=== PATIENT | male | born 1990 | race Caucasian/White ===

== ENCOUNTER 2017-05-29 11:34 | Emergency (ER) | payer BC, OTHER ==
[2017-05-29 11:53] VITALS: BP 123/74; PULSE 58; RESP 18; TEMP 98
--- NOTE | 2017-05-29 13:03 | XR ---
EXAMINATION TYPE: XR ribs LT w pa chest x-ray , 5 VIEWS DATE OF EXAM ORDERED: 05/29/2017 HISTORY: Pain. COMPARISON: Previous chest x-ray dated 12/22/2015. FINDINGS: The lungs are clear. Pleural space are clear. The heart is not enlarged. No displaced left -sided rib fractures are seen. IMPRESSION: 1. NORMAL CHEST. 2. I DO NOT SEE EVIDENCE OF A DISPLACED RIB FRACTURE AT THIS TIME.
--- NOTE | 2017-05-29 13:08 | ED ---
General Adult HPI - General Chief complaint: Chest Pain Stated complaint: SOB Time Seen by Provider: 05/29/17 12:38 Source: patient, RN notes reviewed Mode of arrival: ambulatory Limitations: no limitations - History of Present Illness Initial comments: 27-year-old male presents to the emergency Department chief complaint of left- sided rib pain. Ever since patient episode he just has his pain along the left lateral aspect of the ribs worse to breathing worse to touch worse picking up or moving. Patient states that he hasn't had a cough cold Raynaud's with this. Patient's eighth that he hasn't had any centralized chest pain he hasn't had any pressure. Patient was concerned due to his continued discomfort so he thought that he should be evaluated. Patient denies any other symptoms at this time.Patient denies any recent fever, chills, shortness of breath, chest pain, back pain, abdominal pain, nausea vomiting, numbness or tingling, dysuria or hematuria, constipation or diarrhea, headaches or visual changes, or any other current symptoms. - Related Data Previous Rx's Medication Instructions Recorded Cyclobenzaprine [Flexeril] 10 mg PO TID PRN #15 tablet 03/26/16 HYDROcodone/APAP 5-325MG [Gore 5] 1 each PO Q6H PRN #6 tab 03/26/16 Ibuprofen [Motrin] 600 mg PO Q6HR PRN #20 tab 03/26/16 Allergies Allergy/AdvReac Type Severity Reaction Status Date / Time Penicillins AdvReac Unknown Verified 05/29/17 11:52 Childhood Review of Systems ROS Statement: Those systems with pertinent positive or pertinent negative responses have been documented in the HPI. ROS Other: All systems not noted in ROS Statement are negative. Past Medical History Past Medical History: No Reported History Additional Past Medical History / Comment(s): chronic back pain History of Any Multi-Drug Resistant Organisms: None Reported Past Surgical History: Adenoidectomy, Tonsillectomy Additional Past Surgical History / Comment(s): pe tubes Past Psychological History: No Psychological Hx Reported Smoking Status: Current every day smoker Past Alcohol Use History: None Reported Past Drug Use History: Marijuana General Exam Limitations: no limitations General appearance: alert, in no apparent distress Head exam: Present: atraumatic, normocephalic, normal inspection ENT exam: Present: normal exam, mucous membranes moist Neck exam: Present: normal inspection. Absent: tenderness, meningismus, lymphadenopathy Respiratory exam: Present: normal lung sounds bilaterally, chest wall tenderness (left posterior ribs and left lateral). Absent: respiratory distress , wheezes, rales, rhonchi, stridor Cardiovascular Exam: Present: regular rate, normal rhythm, normal heart sounds. Absent: systolic murmur, diastolic murmur, rubs, gallop, clicks Extremities exam: Present: normal inspection, full ROM, normal capillary refill. Absent: tenderness, pedal edema, joint swelling, calf tenderness Back exam: Present: normal inspection Neurological exam: Present: alert, oriented X3 Psychiatric exam: Present: normal affect, normal mood Skin exam: Present: warm, dry, intact, normal color. Absent: rash Course Vital Signs 05/29/17 11:50 Temperature 98.0 F Pulse Rate 58 L Respiratory 18 Rate Blood Pressure 123/74 O2 Sat by Pulse 99 Oximetry Medical Decision Making - Medical Decision Making 27-year-old male presents emergency department with a chief complaint of left- sided rib pain. This time it does appear to be a rib strain. At this time we did discuss Motrin Tylenol icing the area. We did discuss care for this. We discussed return parameters and follow-up and outpatient family's questions. They stated the Marky they are in agreement with the plan. This and the patient will be discharged home. - Radiology Data Radiology results: report reviewed, image reviewed Disposition Clinical Impression: Thoracic myofascial strain, Rib sprain Disposition: HOME SELF-CARE Condition: Stable Instructions: Rib Contusion (ED) Additional Instructions: Please use medication as discussed. Please follow up with family doctor if symptoms have not improved over the next two days. Please return to the emergency room if your symptoms increase or worsen or for any other concerns. Referrals: Mima Medrano MD [STAFF PHYSICIAN] - 1-2 days Time of Disposition: 13:08
== END 2017-05-29 13:19 | disposition home or self-care (01) ==
LOC: EC 11:34
DX: S29.012A Strain of muscle and tendon of back wall of thorax, initial encounter (principal); S23.41XA Sprain of ribs, initial encounter; F17.200 Nicotine dependence, unspecified, uncomplicated; Z88.0 Allergy status to penicillin; X50.9XXA Other and unspecified overexertion or strenuous movements or postures, initial encounter
CPT/HCPCS: 99284

== ENCOUNTER 2017-10-10 18:59 | Emergency (ER) | payer OTHER ==
[2017-10-10 19:17] VITALS: BP 145/75; PULSE 91; RESP 18; TEMP 100.5
[2017-10-10] MEDS ORDERED: IBUPROFEN 600 MG TAB PO STA (19:55)
[2017-10-10] MEDS ORDERED: ACETAMINOPHEN TAB 500 MG TAB PO STA (19:55)
--- NOTE | 2017-10-10 20:01 | ED ---
General Adult HPI - General Chief complaint: Upper Respiratory Infection Stated complaint: Flu Time Seen by Provider: 10/10/17 19:38 Source: patient, RN notes reviewed Mode of arrival: ambulatory Limitations: no limitations - History of Present Illness Initial comments: 27 yo male presents to the ER with cc of fever and body aches. Patient has been sick since this morning. Patient was recently diagnosed with influenza. He states he's had a minimal cough fever bodyaches runny nose. He denies any nausea or vomiting with this. We were concerned due to the continued symptoms without that he should be seen. Patient denies any recent shortness of breath, chest pain, back pain, abdominal pain, nausea vomiting, numbness or tingling, dysuria or hematuria, constipation or diarrhea, headaches or visual changes, or any other current symptoms. - Related Data Previous Rx's Medication Instructions Recorded Oseltamivir [Tamiflu] 75 mg PO Q12HR #10 cap 10/10/17 Allergies Allergy/AdvReac Type Severity Reaction Status Date / Time Penicillins AdvReac Unknown Verified 10/10/17 19:49 Childhood Review of Systems ROS Statement: Those systems with pertinent positive or pertinent negative responses have been documented in the HPI. ROS Other: All systems not noted in ROS Statement are negative. Past Medical History Past Medical History: No Reported History Additional Past Medical History / Comment(s): chronic back pain History of Any Multi-Drug Resistant Organisms: None Reported Past Surgical History: Adenoidectomy, Tonsillectomy Additional Past Surgical History / Comment(s): pe tubes Past Psychological History: No Psychological Hx Reported Smoking Status: Current every day smoker Past Alcohol Use History: None Reported Past Drug Use History: None Reported General Exam - General Exam Comments Initial Comments: General exam: Alert, active, comfortable in no apparent distress Head: Normocephalic Eyes: Normal reaction of pupils, equal size, normal range of extraocular motion Ears: normal external ear canals, pink tympanic membranes with normal cone of light Nose: clear with pink turbinates Throat: no erythema or exudates with normal sized tonsils Neck: no masses, no nuchal rigidity Chest: no chest wall deformity Lungs: equal air entry with no crackles or wheeze CVS: S1 and S2 normal with no audible mumurs, regular rhythm Abdomen: no hepatosplenomegaly, normal bowel sounds, no guarding or rigidity Spine: no scoliosis or deformity Skin: no rashes Neurological: No focal deficits, tone is normal in all 4 extremities Limitations: no limitations Course Vital Signs 10/10/17 19:13 Temperature 100.5 F H Pulse Rate 91 Respiratory 18 Rate Blood Pressure 145/75 Medical Decision Making - Medical Decision Making 27-year-old male presents for fever chills. This patient is positive for influenza. We will start patient on Tamiflu. We did discuss follow-up return parameters all questions. At this time he stated he understood and is in agreement with this plan. All questions have been answered. He will be discharged. - Lab Data Lab Results 10/10/17 Range/Units 19:37 Influenza Type A RNA Detected H (Not Detectd) Influenza Type B (PCR) Not Detected (Not Detectd) Disposition Clinical Impression: Influenza A Disposition: HOME SELF-CARE Condition: Stable Instructions: Influenza (ED) Additional Instructions: Please use medication as discussed. Please follow up with family doctor if symptoms have not improved over the next two days. Please return to the emergency room if your symptoms increase or worsen or for any other concerns. Prescriptions: Oseltamivir [Tamiflu] 75 mg PO Q12HR #10 cap Referrals: Mima Medrano MD [STAFF PHYSICIAN] - 1-2 days Time of Disposition: 20:15
== END 2017-10-10 20:25 | disposition home or self-care (01) ==
LOC: EC 18:59
DX: J10.1 Influenza due to other identified influenza virus with other respiratory manifestations (principal); F17.200 Nicotine dependence, unspecified, uncomplicated; Z88.0 Allergy status to penicillin
CPT/HCPCS: 87502; 99283

== ENCOUNTER → 2018-07-26 | Outpatient (CLI) | payer OTHER ==
--- NOTE | 2018-07-26 08:22 | CT ---
EXAMINATION TYPE: CT abdomen w con DATE OF EXAM: 07/26/2018 COMPARISON: None HISTORY: elevated amylase and lipase CT DLP: 565.20 mGycm Automated exposure control for dose reduction was used. TECHNIQUE: Helical acquisition of images was performed from the lung bases through the top of iliac crest to include entire abdomen. CONTRAST: Performed with Oral Contrast and with IV Contrast, patient injected with 100 mL of Isovue 300. FINDINGS: LUNG BASES: There is minimal bibasilar subsegmental dependent atelectasis. LIVER/GB: Liver is unremarkable and homogeneous. No cholelithiasis. PANCREAS: The pancreatic head is slightly bulbous in contour on coronal images with minimal fat stran ding on coronal imaging and the pancreaticoduodenal groove. No radiopaque obstructing gallstone is se en or intrahepatic biliary ductal dilatation. No current peripancreatic fat stranding changes are see n. No calcifications of chronic pancreatitis. No pancreatic ductal dilatation. No pancreatic abnormal parenchymal enhancement. No splenic arterial pseudoaneurysm is seen. No evidence of splenoportal con fluence thrombosis or proximal superior mesenteric vein thrombosis. No visualized pancreatic mass is seen. There is some minimal fat stranding around the celiac axis at the dorsal aspect of the pancreat ic body that could be residual from resolving pancreatitis but is nonspecific. No peripancreatic flui d collection is seen to suggest pancreatic pseudocyst or abscess. SPLEEN: The spleen is nonenlarged measuring 12.7 cm in craniocaudal dimension ADRENALS: No significant abnormality is seen. KIDNEYS: The kidneys enhance and excrete symmetrically without hydronephrosis. Prominent, Abel is n oted on the right. BOWEL: No dilated large or small bowel is seen. Appendix is air-filled and within normal limits. LYMPH NODES: No significant abnormality is seen. OSSEOUS STRUCTURES: Degenerative changes seen of the right sacroiliac joint with likely degenerative joint space air. Pars interarticularis defects are seen bilaterally at L3 and L4 without anterolisth esis. There is very mild retrolisthesis of L5 with respect to S1. FREE AIR: No free air is visualized. IMPRESSION: 1. FINDINGS SUGGESTING VERY MILD ACUTE UNCOMPLICATED PANCREATITIS WITH ADDITIONAL MINIMAL FAT STRANDI NG AROUND THE CELIAC AXIS AT THE DORSAL ASPECT OF THE PANCREATIC BODY. NO COMPLICATING FACTORS SUCH A S PERIPANCREATIC FLUID COLLECTION, SPLENIC ARTERIAL PSEUDOANEURYSM, SPLENOPORTAL CONFLUENCE OR SUPERI OR MESENTERIC VENOUS PROXIMAL THROMBOSIS, NOR EVIDENCE OF NECROTIZING PANCREATITIS. NO EVIDENCE OF CH RONIC PANCREATITIS. NO CHOLELITHIASIS. 2. 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 MILD DEGENERATIVE CH ANGES OF THE RIGHT SACROILIAC JOINT ARE SEEN WITH MINIMAL RETROLISTHESIS OF L5 ON S1.
== END | disposition home or self-care (01) ==
LOC: RADCTMAIN 06:31
PROVIDERS: ATTEND Family Medicine
DX: R74.8 Abnormal levels of other serum enzymes (principal); Z88.0 Allergy status to penicillin; Z88.8 Allergy status to other drugs, medicaments and biological substances
CPT/HCPCS: 74160; Q9967

== ENCOUNTER 2024-03-01 03:18 | Emergency (ER) | payer BC, OTHER ==
[2024-03-01 03:21] VITALS: RESP 18
[2024-03-01] MEDS: ACETAMINOPHEN TAB 500 MG TAB PO STA (04:07)
[2024-03-01] MEDS: IBUPROFEN 800 MG TAB PO STA (04:09)
--- NOTE | 2024-03-01 04:58 | ED ---
General Adult HPI - General Chief complaint: Skin/Abscess/Foreign Body Stated complaint: Rt hand laceration Time Seen by Provider: 03/01/24 03:32 Source: patient, RN notes reviewed Mode of arrival: ambulatory Limitations: no limitations - History of Present Illness Initial comments: 33-year-old male presented to the ED with a chief complaint of laceration. Patient states he just got done with work and was rushing. States that he threw his toolbox to put it away on the shelf. When his toolbox landed he states that the hatchet in the toolbox bounced up and fell onto the top of his right thumb causing laceration to it. No other injuries at this time. Tetanus status up-to-date. No other complaints. - Related Data Previous Rx's Medication Instructions Recorded Oseltamivir [Tamiflu] 75 mg PO Q12HR #10 cap 10/10/17 Ondansetron Odt [Zofran ODT] 4 mg PO Q8HR PRN #30 tab 05/23/18 Sulfamethox-Tmp 800-160Mg [Bactrim 1 each PO Q12HR 5 Days #10 tab 03/01/24 Ds] Allergies Allergy/AdvReac Type Severity Reaction Status Date / Time Penicillins AdvReac Unknown Verified 03/01/24 03:21 Childhood Review of Systems ROS Statement: Those systems with pertinent positive or pertinent negative responses have been documented in the HPI. ROS Other: All systems not noted in ROS Statement are negative. Past Medical History Past Medical History: No Reported History Additional Past Medical History / Comment(s): chronic back pain History of Any Multi-Drug Resistant Organisms: None Reported Past Surgical History: Adenoidectomy, Tonsillectomy Additional Past Surgical History / Comment(s): pe tubes Past Psychological History: No Psychological Hx Reported Smoking Status: Current every day smoker Past Alcohol Use History: None Reported Past Drug Use History: Marijuana General Exam Limitations: no limitations General appearance: alert, in no apparent distress Eye exam: Present: normal appearance Neck exam: Present: normal inspection Respiratory exam: Present: normal lung sounds bilaterally Cardiovascular Exam: Present: regular rate GI/Abdominal exam: Present: soft, normal bowel sounds. Absent: distended, tenderness, guarding, rebound, rigid Extremities exam: Present: other (Approximately 3.5 cm laceration to the dorsal aspect of the left thumb proximal to the interphalangeal joint. No snuffbox tenderness to palpation. To fully extend, flex, oppose the thumb.) Neurological exam: Present: alert, oriented X3 Skin exam: Present: warm, dry Course Vital Signs 03/01/24 03:19 Temperature 98.3 F Pulse Rate 94 Respiratory 18 Rate Blood Pressure 136/93 O2 Sat by Pulse 97 Oximetry Procedures - Laceration Laceration #1 Site: hand Size (cm): 4 Description: linear Depth: simple, single layer Anesthetic Used: lidocaine 1% Anesthesia Technique: local infiltration Amount (mls): 1 Pre-repair: wound explored, irrigated extensively, deep structures intact Type of Sutures: nylon Size of Sutures: 4-0 Number of Sutures: 7 Technique: simple, interrupted Patient Tolerated Procedure: well, no complications Medical Decision Making - Medical Decision Making Was pt. sent in by a medical professional or institution (, PA, SOLAR SALES REPRESENTATIVE, urgent care, hospital, or correction...) When possible be specific @ -No Did you speak to anyone other than the patient for history (EMS, parent, family, police, friend...)? What history was obtained from this source @ -No Did you review nursing and triage notes (agree or disagree)? Why? @ -I reviewed and agree with nursing and triage notes Were old charts reviewed (outside hosp., previous admission, EMS record, old EKG, old radiological studies, urgent care reports/EKG's, correction records)? Report findings @ -No old charts were reviewed Differential Diagnosis (chest pain, altered mental status, abdominal pain women, abdominal pain men, vaginal bleeding, weakness, fever, dyspnea, syncope, headache, dizziness, GI bleed, back pain, seizure, CVA, palpatations, mental health, musculoskeletal)? @ -Differential Musculoskeletal Muscular strain, contusion, ligament sprain, fracture, arthritis, septic arthritis, bursitis, cellulitis, muscle spasm, nerve compression, DVT, arterial occlusion, herpes zoster, electrolyte abnormality, tumor.... This is not meant to be in all inclusive list EKG interpreted by me (3pts min.). @ -None X-rays interpreted by me (1pt min.). @ -None done CT interpreted by me (1pt min.). @ -None done U/S interpreted by me (1pt. min.). @ -None done What testing was considered but not performed or refused? (CT, X-rays, U/S, labs)? Why? @ -None What meds were considered but not given or refused? Why? @ -None Did you discuss the management of the patient with other professionals (professionals i.e. , PA, SOLAR SALES REPRESENTATIVE, lab, RT, psych nurse, hospice social worker, fuel system maintenance worker, teacher, medical officer psychiatry, case coordinator)? Give summary @ -No Was smoking cessation discussed for >3mins.? @ -No Was critical care preformed (if so, how long)? @ -No Were there social determinants of health that impacted care today? How? (Homelessness, low income, unemployed, alcoholism, drug addiction, transportation, low edu. Level, literacy, decrease access to med. care, intermediate, rehab)? @ -No Was there de-escalation of care discussed even if they declined (Discuss DNR or withdrawal of care, Hospice)? DNR status @ -No What co-morbidities impacted this encounter? (DM, HTN, Smoking, COPD, CAD, Cancer, CVA, ARF, Chemo, Hep., AIDS, mental health diagnosis, sleep apnea, morbid obesity)? @ -None Was patient admitted / discharged? Hospital course, mention meds given and route, prescriptions, significant lab abnormalities, going to OR and other pertinent info. @ -Discharge 33-year-old male presents to the ED with a chief complaint of laceration after a hatchet accidentally fell onto the top of his thumb. On examination no snuffbox tenderness to palpation. Able to fully flex extend and oppose the thumb. Tetanus status up-to-date. Laceration was repaired. For further details please see procedure note. 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 Therefore, patient instead provided a starter pack and prescription for Bactrim due to high risk area for infection. Discharged home in stable condition. Discussed return precautions with patient who verbalized agreement. Undiagnosed new problem with uncertain prognosis? @ -No Drug Therapy requiring intensive monitoring for toxicity (Heparin, Nitro, Insulin, Cardizem)? @ -No Were any procedures done? @ -Yes, laceration repair Diagnosis/symptom? @ -Laceration Acute, or Chronic, or Acute on Chronic? @ -Acute Uncomplicated (without systemic symptoms) or Complicated (systemic symptoms)? @ -Uncomplicated Side effects of treatment? @ -No Exacerbation, Progression, or Severe Exacerbation? @ -No Poses a threat to life or bodily function? How? (Chest pain, [place], [place], pneumonia, PE, COPD, DKA, ARF, appy, cholecystitis, CVA, Diverticulitis, Homicidal, Suicidal, threat to staff... and all critical care pts) @ -No Disposition Clinical Impression: Laceration Disposition: HOME SELF-CARE Condition: Good Instructions (If sedation given, give patient instructions): Care For Your Stitches (ED) Additional Instructions: Please return to the Emergency Department if symptoms worsen or any other concerns. Please return in 10 to 14 days for suture removal. Take antibiotics as prescribed. Use [id number] pain medications as needed for pain. Prescriptions: Sulfamethox-Tmp 800-160Mg [Bactrim Ds] 1 each PO Q12HR 5 Days #10 tab Is patient prescribed a controlled substance at d/c from ED?: No Referrals: Simon Handley MD [Primary Care Provider] - 1-2 days Time of Disposition: 05:03
[2024-03-01] MEDS: SULFAMETH-TMP DS STARTER PACK 2 TAB BTL PO STA (05:01)
[2024-03-01] MEDS: BACITRACIN OINT 1 EACH PACKET TOPICAL ONE (05:02)
[2024-03-01 05:16] VITALS: BP 128/88; PULSE 90; TEMP 98.2
== END 2024-03-01 05:10 | disposition home or self-care (01) ==
LOC: EC 03:18
DX: S61.011A Laceration without foreign body of right thumb without damage to nail, initial encounter (principal); F17.200 Nicotine dependence, unspecified, uncomplicated; Z88.0 Allergy status to penicillin; W26.8XXA Contact with other sharp object(s), not elsewhere classified, initial encounter; Y99.0 Civilian activity done for income or pay
CPT/HCPCS: 12002; 99283